=== PATIENT | female | born 1980 | race Two or more races ===

== ENCOUNTER 2017-05-04 17:52 | Emergency (ER) | payer OTHER ==
[2017-05-04] MEDS ORDERED: NORMAL SALINE 1000 ML 1,000 ML IV PRN (18:12)
--- NOTE | 2017-05-04 18:16 | ER Document Report ---
ED Medical Screen (RME) - General Chief Complaint: Fainting Stated Complaint: DIZZYNESS Time Seen by Provider: 05/04/17 17:58 Mode of Arrival: Ambulatory Information source: Patient TRAVEL OUTSIDE OF THE [place] IN LAST 30 DAYS: No - HPI Patient complains to provider of: Syncope 2 Onset: Just prior to arrival Onset/Duration: Sudden Notes: 05/04/17 18:13 Patient is a 36-year-old female presenting to the emergency room complaining of 2 syncopal episodes today, twice she woke up on the ground with her male mold stamper and repairer standing over her, reports feeling dizzy and lightheaded and seeing spots just prior to the episodes occurring, denies any chest pain or shortness of breath, she states she has been having daily vaginal bleeding since April 03 which is unusual for her, she reports that she has been eating ice frequently and has a metallic taste in her mouth as well, patient denies any knowledge of being , no history of anemia previously, she currently takes metformin for insulin resistance and a weekly injection of Bydureon - Related Data Allergies/Adverse Reactions: Penicillins Allergy (Verified 05/04/17 17:55) Past Medical History - Social History Chew tobacco use (# tins/day): No Frequency of alcohol use: None Drug Abuse: None Endocrine Medical History: Reports: Hx Diabetes Mellitus Type 1 Renal/ Medical History: Denies: Hx Peritoneal Dialysis Physical Exam - Vital signs Vitals: Temp Pulse Resp BP Pulse Ox 98.6 F 79 14 154/96 H 100 05/04/17 17:55 05/04/17 17:55 05/04/17 17:55 05/04/17 17:55 05/04/17 17:55 Course - Vital Signs Vital signs: Temp Pulse Resp BP Pulse Ox 98.6 F 79 14 154/96 H 100 05/04/17 17:55 05/04/17 17:55 05/04/17 17:55 05/04/17 17:55 05/04/17 17:55
[2017-05-04 19:10] LABS: ABSOLUTE BASOPHILS # (AUTO) 0.1 10^3/uL (0.0-0.2); ABSOLUTE EOSINOPHILS # (AUTO) 0.1 10^3/uL (0.0-0.6); ABSOLUTE LYMPHOCYTES (AUTO) 2.3 10^3/uL (0.5-4.7); ABSOLUTE MONOCYTES (AUTO) 0.4 10^3/uL (0.1-1.4); ABSOLUTE NEUT (AUTO) 8.4 10^3/uL (1.7-8.2); BASOPHILS % (AUTO) 0.5 % (0-2); EOSINOPHILS % (AUTO) 0.6 % (0-6); HEMATOCRIT 35.7 % (36.0-47.0); HEMOGLOBIN 10.9 g/dL (12.0-15.5); LYMPHOCYTES % (AUTO) 20.5 % (13-45); MEAN CORPUSCULAR HEMOGLOBIN 20.3 pg (27.0-33.4); MEAN CORPUSCULAR HGB CONC 30.7 g/dL (32.0-36.0); MEAN CORPUSCULAR VOLUME 66 fl (80-97); MONOCYTES % (AUTO) 3.6 % (3-13); RED CELL DISTRIBUTION WIDTH 19.5 % (11.5-14.0); SEGMENTED NEUTROPHILS % (AUTO) 74.8 % (42-78); WHITE BLOOD COUNT 11.3 10^3/uL (4.0-10.5)
[2017-05-04 19:28] LABS: ALANINE AMINOTRANSFERASE 35 U/L (9-52); ALBUMIN 4.4 g/dL (3.5-5.0); ALKALINE PHOSPHATASE 65 U/L (38-126); ANION GAP 11 (5-19); ASPARTATE AMINO TRANSFERASE 30 U/L (14-36); BILIRUBIN,DIRECT 0.4 mg/dL (0.0-0.4); BILIRUBIN,TOTAL 0.5 mg/dL (0.2-1.3); BLOOD UREA NITROGEN 18 mg/dL (7-20); CALCIUM 9.6 mg/dL (8.4-10.2); CARBON DIOXIDE 26 mmol/L (22-30); CHLORIDE 104 mmol/L (98-107); GLUCOSE 90 mg/dL (75-110); POTASSIUM 4.3 mmol/L (3.6-5.0); SODIUM 140.9 mmol/L (137-145); TOTAL PROTEIN 7.3 g/dL (6.3-8.2)
--- NOTE | 2017-05-04 19:28 | ER Document Report ---
ED General - General Chief Complaint: Fainting Stated Complaint: DIZZYNESS Time Seen by Provider: 05/04/17 17:58 Mode of Arrival: Ambulatory Notes: Dizziness and feels like fainting. Patient states that this is happened a couple of times a day. Denies any chest pain. History of insulin resistance. Taking metformin. Over the last year she has lost approximately 50 pounds in a weight loss program. Not taking any systemic medication at this time. No fever. No chills. No sweats. No other major issues at this time. TRAVEL OUTSIDE OF THE [place] IN LAST 30 DAYS: No - Related Data Allergies/Adverse Reactions: Penicillins Allergy (Verified 05/04/17 17:55) Past Medical History - General Information source: Patient - Social History Smoking Status: Never Smoker Chew tobacco use (# tins/day): No Frequency of alcohol use: None Drug Abuse: None Family History: Reviewed & Not Pertinent Endocrine Medical History: Reports: Hx Diabetes Mellitus Type 1 Renal/ Medical History: Denies: Hx Peritoneal Dialysis Review of Systems - Review of Systems Constitutional: No symptoms reported EENT: No symptoms reported Cardiovascular: No symptoms reported, Syncope, Dizziness, Lightheaded Respiratory: No symptoms reported Gastrointestinal: No symptoms reported Genitourinary: No symptoms reported Female Genitourinary: No symptoms reported Musculoskeletal: No symptoms reported Skin: No symptoms reported Hematologic/Lymphatic: No symptoms reported Neurological/Psychological: No symptoms reported Physical Exam - Vital signs Vitals: Temp Pulse Resp BP Pulse Ox 98.6 F 79 14 154/96 H 100 05/04/17 17:55 05/04/17 17:55 05/04/17 17:55 05/04/17 17:55 05/04/17 17:55 Interpretation: Normal - General General appearance: Appears well, Alert - HEENT Head: Normocephalic, Atraumatic Eyes: Normal Pupils: PERRL - Respiratory Respiratory status: No respiratory distress Chest status: Nontender Breath sounds: Normal Chest palpation: Normal - Cardiovascular Rhythm: Regular Heart sounds: Normal auscultation Murmur: No - Abdominal Inspection: Normal Distension: No distension Bowel sounds: Normal Tenderness: Nontender Organomegaly: No organomegaly - Back Back: Normal, Nontender - Extremities General upper extremity: Normal inspection, Nontender, Normal color, Normal ROM , Normal temperature General lower extremity: Normal inspection, Nontender, Normal color, Normal ROM , Normal temperature, Normal weight bearing. No: Sharon's sign - Neurological Neuro grossly intact: Yes Cognition: Normal Orientation: AAOx4 Sridhar Coma Scale Eye Opening: Spontaneous Ridge Coma Scale Verbal: Oriented Sridhar Coma Scale Motor: Obeys Commands Ridge Coma Scale Total: 15 Speech: Normal Motor strength normal: LUE, RUE, LLE, RLE Sensory: Normal - Psychological Associated symptoms: Normal affect, Normal mood - Skin Skin Temperature: Warm Skin Moisture: Dry Skin Color: Normal Course - Re-evaluation Re-evalutation: 05/04/17 20:37 Well-appearing. No acute distress. Labs unremarkable. EKG unremarkable. 05/04/17 20:37 Labs- All tests 24 hr 05/04/17 05/04/17 05/04/17 08:15 18:50 18:50 WBC 11.3 H RBC 5.40 H Hgb 10.9 L Hct 35.7 L MCV 66 L MCH 20.3 L MCHC 30.7 L RDW 19.5 H Plt Count 190 Seg Neutrophils % 74.8 Lymphocytes % 20.5 Monocytes % 3.6 Eosinophils % 0.6 Basophils % 0.5 Absolute Neutrophils 8.4 H Absolute Lymphocytes 2.3 Absolute Monocytes 0.4 Absolute Eosinophils 0.1 Absolute Basophils 0.1 Sodium 140.9 Potassium 4.3 Chloride 104 Carbon Dioxide 26 Anion Gap 11 BUN 18 Creatinine 1.10 Est GFR ( Amer) > 60 Est GFR (Non-Af Amer) 56 L Glucose 90 Calcium 9.6 Total Bilirubin 0.5 Direct Bilirubin 0.4 Indirect Bilirubin Not Reportable Neonat Total Bilirubin Not Reportable AST 30 ALT 35 Alkaline Phosphatase 65 Total Protein 7.3 Albumin 4.4 Serum HCG, Qual Urine Color Urine Appearance Urine pH Ur Specific Ehrenberg Urine Protein Urine Glucose (UA) Urine Ketones Urine Blood Urine Nitrite Urine Bilirubin Urine Urobilinogen Ur Leukocyte Esterase Urine WBC (Auto) Urine RBC (Auto) Squamous Epi Cells Auto Urine Mucus (Auto) Urine Ascorbic Acid Blood Type A POSITIVE Antibody Screen NEGATIVE 05/04/17 05/04/17 18:50 19:40 WBC RBC Hgb Hct MCV MCH MCHC RDW Plt Count Seg Neutrophils % Lymphocytes % Monocytes % Eosinophils % Basophils % Absolute Neutrophils Absolute Lymphocytes Absolute Monocytes Absolute Eosinophils Absolute Basophils Sodium Potassium Chloride Carbon Dioxide Anion Gap BUN Creatinine Est GFR ( Amer) Est GFR (Non-Af Amer) Glucose Calcium Total Bilirubin Direct Bilirubin Indirect Bilirubin Neonat Total Bilirubin AST ALT Alkaline Phosphatase Total Protein Albumin Serum HCG, Qual NEGATIVE Urine Color YELLOW Urine Appearance SLIGHTLY-CLOUDY Urine pH 5.0 Ur Specific Ehrenberg 1.028 Urine Protein 30 H Urine Glucose (UA) NEGATIVE Urine Ketones NEGATIVE Urine Blood LARGE H Urine Nitrite NEGATIVE Urine Bilirubin NEGATIVE Urine Urobilinogen NEGATIVE Ur Leukocyte Esterase TRACE H Urine WBC (Auto) 8 Urine RBC (Auto) 14 Squamous Epi Cells Auto 8 Urine Mucus (Auto) RARE Urine Ascorbic Acid NEGATIVE Blood Type Antibody Screen - Vital Signs Vital signs: Temp Pulse Resp BP Pulse Ox 98.6 F 79 14 154/96 H 100 05/04/17 17:55 05/04/17 17:55 05/04/17 17:55 05/04/17 17:55 05/04/17 17:55 - Laboratory Result Diagrams: 05/04/17 18:50 05/04/17 18:50 Laboratory results interpreted by me: 05/04/17 05/04/17 05/04/17 18:50 18:50 19:40 WBC 11.3 H RBC 5.40 H Hgb 10.9 L Hct 35.7 L MCV 66 L MCH 20.3 L MCHC 30.7 L RDW 19.5 H Absolute Neutrophils 8.4 H Est GFR (Non-Af Amer) 56 L Urine Protein 30 H Urine Blood LARGE H Ur Leukocyte Esterase TRACE H - EKG Interpretation by Ny EKG shows normal: Sinus rhythm, Bradley, Intervals, QRS Complexes, ST-T Waves Discharge - Discharge Clinical Impression: Near syncope Disposition: HOME, SELF-CARE Additional Instructions: Near Syncopal Episode Syncope or near syncope (fainting or near-fainting) can occur from many different health problems. Or it can be a simple fainting spell requiring no treatment. It is safe for you to go home, but further evaluation will likely be necessary. Your work-up may include tests for internal bleeding, heart disease, medication problems, or near-strokes. Tests are not always required, however, depending on the nature of your problem. The warning signs of an impending faint include: dizziness, lightheadedness , nausea, hot flashes, tingling, and weakness. If this happens, lay down and put your feet up, then wait until all of these symptoms have passed before standing up again. If these episodes become recurrent, or if you develop chest pain, heart palpitations, mental confusion, blurred vision, or headache, then you should call the physician, or go to the emergency room.
[2017-05-04 20:02] LABS: APPEARANCE,URINE SLIGHTLY-CLOUDY; BILIRUBIN,URINE NEGATIVE (NEGATIVE); GLUCOSE, URINE NEGATIVE (NEGATIVE); KETONES,URINE NEGATIVE (NEGATIVE); LEUKOCYTE ESTERASE,URINE TRACE (NEGATIVE); NITRITE,URINE NEGATIVE (NEGATIVE); PROTEIN,URINE 30 mg/dL (NEGATIVE); URINE SPECIFIC GRAVITY 1.028; UROBILINOGEN,URINE NEGATIVE mg/dL (<2.0)
[2017-05-04 20:55] VITALS: BP 106/88
--- NOTE | 2017-05-05 07:44 | EKG REPORT ---
SEVERITY:- NORMAL ECG - SINUS RHYTHM : Confirmed by: Sim Hunt MD 05-May-2017 07:44:22
== END 2017-05-04 20:55 | disposition home or self-care (01) ==
LOC: ER 17:52
DX: R55 Syncope and collapse (principal); E10.9 Type 1 diabetes mellitus without complications; Z79.84 Long term (current) use of oral hypoglycemic drugs
CPT/HCPCS: 93005; 99284; 96360; 86900; 86901; 36415; 86850; 84703; 85025; 80053; 81001; 93010; J7030

== ENCOUNTER → 2017-08-29 | Outpatient (CLI) | payer OTHER ==
--- NOTE | 2017-08-30 13:05 | RADIOLOGY REPORT (SQ) ---
EXAM DESCRIPTION: NM THYROID SCAN AND UPTAKE COMPLETED DATE/TIME: 08/30/2017 12:49 pm REASON FOR STUDY: E04.2 NONTOXIC MULTINODULAR GOITER E04.2 NONTOXIC MULTINODULAR GOITER COMPARISON: None. RADIONUCLIDE AND DOSE: 310 microcuries I-123. The route of agent administration: Oral and Intravenous ADDITIONAL DRUGS AND DOSES: None. TECHNIQUE: Iodine uptake was measured at 4 and 24 hours. Images of the neck were acquired. LIMITATIONS: None. FINDINGS: 4 HOUR UPTAKE RADIO-IODINE: 12.5%. Normal Range of 5-20% [facility] Normal Range of 5-15% [facility] Normal Range of 5-15% [facility] 24 HOUR UPTAKE RADIO-IODINE: 29.4%. Normal Range of 7-35% [facility] Normal Range of 8-35% [facility] Normal Range of 15-30% [facility] SCAN: Imaging of the thyroid demonstrates multiple areas of decreased uptake throughout an enlarged g land, worrisome for multinodular goiter. No hyperfunctioning nodule is identified on today's scan. IMPRESSION: 4 hour and 24 hour uptake is at the upper limits of normal Diffusely enlarged gland with heterogeneous activity worrisome for multinodular goiter TECHNICAL DOCUMENTATION: JOB ID: [id number] [employer]- All Rights Reserved
== END ==
LOC: RAD 09:22
PROVIDERS: ATTEND Physician Assistant
DX: E04.2 Nontoxic multinodular goiter (principal)
CPT/HCPCS: 36415; 84703; 78014; A9516

== ENCOUNTER 2018-09-29 07:53 | Day surgery (SDC) | payer OTHER ==
[~2018-09-29 07:53] MED LIST: DEXAMETHASONE SOD PHOSPHATE INJ 4 MG/1 ML VIAL ONE; FENTANYL CITRATE INJ/PF 100 MCG/2 ML AMPUL ONE; MIDAZOLAM 2 MG/2 ML INJ ONE; ONDANSETRON HCL INJ/PF 4 MG/2 ML SDV ONE; PROPOFOL INJ 200 MG/20 ML VIAL IV ONE
[2018-09-29 08:30] LABS: HEMOGLOBIN 11.5 g/dL (12.0-15.5); MEAN CORPUSCULAR HEMOGLOBIN 21.6 pg (27.0-33.4); MEAN CORPUSCULAR HGB CONC 31.9 g/dL (32.0-36.0); MEAN CORPUSCULAR VOLUME 68 fl (80-97); PLATELET COUNT 219 10^3/uL (150-450); RED BLOOD COUNT 5.31 10^6/uL (3.72-5.28); RED CELL DISTRIBUTION WIDTH 18.6 % (11.5-14.0); WHITE BLOOD COUNT 6.8 10^3/uL (4.0-10.5)
[2018-09-29] MEDS ORDERED: LIDOCAINE 1%/EPINEPHRINE INJ 20 ML VIAL ONE (10:08)
[2018-09-29] MEDS ORDERED: METHYLERGONOVINE MALEATE INJ/PF 0.2 MG/1 ML AMPULE ONE (10:08)
[2018-09-29] MEDS ORDERED: MEPERIDINE HCL/PF INJ 25 MG/1 ML DISP.SYRIN IV PRN (10:34)
[2018-09-29] MEDS ORDERED: FENTANYL CITRATE INJ/PF 100 MCG/2 ML AMPUL IV PRN ×3 (10:34)
[2018-09-29] MEDS ORDERED: MORPHINE SULFATE 10 MG/ML INJ IV PRN (10:34)
[2018-09-29] MEDS ORDERED: ONDANSETRON HCL INJ/PF 4 MG/2 ML SDV IV PRN ×2 (10:34→11:18)
[2018-09-29] MEDS ORDERED: DIPHENHYDRAMINE HCL 50 MG/ML VIAL IV PRN (10:34)
[2018-09-29] MEDS ORDERED: PROMETHAZINE HCL INJ 25 MG/1 ML VIAL IV PRN ×2 (10:34)
[2018-09-29] MEDS ORDERED: KETOROLAC TROMETHAMINE INJ/PF 30 MG/1 ML SDV ONE (10:57)
[2018-09-29] MEDS ORDERED: ACETAMINOPHEN 1,000 MG/100 ML RTUPB IV ONE (10:57)
[2018-09-29] MEDS ORDERED: HYDROMORPHONE HCL INJ/PF 2 MG/ML AMPULE IV PRN (11:14)
[2018-09-29] MEDS ORDERED: RINGERS SOLUTION,LACTATED 1,000 ML IV PRN (11:15)
[2018-09-29] MEDS ORDERED: IBUPROFEN 800 MG TABLET PO PRN (11:16)
[2018-09-29] MEDS ORDERED: OXYCODONE-ACETAMINOPHEN 5-325 MG TABLET PO PRN ×2 (11:17)
[2018-09-29] MEDS ORDERED: SUCCINYLCHOLINE CHLORIDE INJ 200 MG/10 ML VIAL ONE (11:35)
[2018-09-29 12:04] VITALS: BP 128/86
--- NOTE | 2018-09-30 07:00 | Operative Report ---
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 PROCEDURE: Anesthesia: Finn LUKE IVF: [800ml] UOP: void prior to OR] Indications: [37yo with insulin resistance and HTN and infertility with PCOS and DUB with menorrhagia. She has had a negative endometrial biopsy. [facility] instructed her to lose 30# then they would proceed with fertility treatments. She has failed medical treatments for Menorrhagia and DUB and is here for D&C to help cause bleeding cessation. The risks, benefits, and alternatives were reviewed and she desires to proceed with planned procedure.] Procedure: The patient was taken to the Operating Room where general anesthesia was obtained without difficulty. She was prepped and draped in the normal sterile fashion in the dorsal lithotomy position. Exam under anesthesia was performed and noted above. A speculum was placed in the vagina. The anterior cervix was grasped with a single-tooth tenaculum and the uterus sounded to 8 cm after paracervical block was performed with 8 mL of 1% lidocaine with epinephrine. Sequential dilators were then used to dilate the cervix to accommodate the Myosure hysteroscope. The hysteroscope was then gently advanced into the uterine cavity in the usual fashion with visualization of the endometrial cavity. The cavity appears somewhat assymetric with indention in the central area which could represent arcuate uterus or septum. Will defer treatment of this to her fertility specialists after further evaluation with [facility] if that is appropriate. At this time gentle curettage was performed until a gritty texture was noted. All instruments were removed from the patient's cervix and vagina. Silver nitrate was applied to the tenaculum site for hemostasis. Sponge lap needle and instrument counts are correct 2. No perioperative antibiotics were given as is not indicated for this procedure. The patient tolerated the procedure well and was taken to the recovery area awake and in stable condition.
== END 2018-09-29 12:06 | disposition home or self-care (01) ==
LOC: OROUT 07:53
PROVIDERS: ATTEND Student in an Organized Health Care Education/Training Program
DX: N92.0 Excessive and frequent menstruation with regular cycle (principal); N93.8 Other specified abnormal uterine and vaginal bleeding; N97.9 Female infertility, unspecified; Z01.818 Encounter for other preprocedural examination; E66.01 Morbid (severe) obesity due to excess calories; E88.81 Metabolic syndrome and other insulin resistance; Z79.84 Long term (current) use of oral hypoglycemic drugs; Z79.3 Long term (current) use of hormonal contraceptives; Z88.0 Allergy status to penicillin; Z68.42 Body mass index [BMI] 45.0-49.9, adult; D64.9 Anemia, unspecified
CPT/HCPCS: 36415; 82962; 84703; 85027; 88305 ×2; 58558; J2250; J1100; J3010; J3490; J1885; J0330; J2405; J2704; J0131; 952; J2210

== ENCOUNTER 2018-10-04 12:27 | Emergency (ER) | payer OTHER ==
[2018-10-04 13:16] LABS: APPEARANCE,URINE CLOUDY; BILIRUBIN,URINE NEGATIVE (NEGATIVE); COLOR,URINE RED; GLUCOSE, URINE NEGATIVE (NEGATIVE); KETONES,URINE NEGATIVE (NEGATIVE); LEUKOCYTE ESTERASE,URINE NEGATIVE (NEGATIVE); NITRITE,URINE NEGATIVE (NEGATIVE); PROTEIN,URINE 100 mg/dL (NEGATIVE); URINE SPECIFIC GRAVITY 1.027; UROBILINOGEN,URINE NEGATIVE mg/dL (<2.0)
[2018-10-04 14:09] LABS: ABSOLUTE EOSINOPHILS # (AUTO) 0.1 10^3/uL (0.0-0.6); ABSOLUTE LYMPHOCYTES (AUTO) 1.7 10^3/uL (0.5-4.7); ABSOLUTE MONOCYTES (AUTO) 0.5 10^3/uL (0.1-1.4); ABSOLUTE NEUT (AUTO) 8.1 10^3/uL (1.7-8.2); BASOPHILS % (AUTO) 0.4 % (0-2); HEMATOCRIT 36.3 % (36.0-47.0); HEMOGLOBIN 11.5 g/dL (12.0-15.5); LYMPHOCYTES % (AUTO) 16.3 % (13-45); MEAN CORPUSCULAR HEMOGLOBIN 21.7 pg (27.0-33.4); MEAN CORPUSCULAR HGB CONC 31.7 g/dL (32.0-36.0); MEAN CORPUSCULAR VOLUME 69 fl (80-97); MONOCYTES % (AUTO) 4.4 % (3-13); PLATELET COUNT 212 10^3/uL (150-450); RED CELL DISTRIBUTION WIDTH 18.1 % (11.5-14.0); SEGMENTED NEUTROPHILS % (AUTO) 77.9 % (42-78); TOTAL CELLS COUNTED % (AUTO) 100 %; WHITE BLOOD COUNT 10.5 10^3/uL (4.0-10.5)
[2018-10-04 14:10] LABS: INTERNATIONAL RATION (INR) 0.87; PROTHROMBIN TIME 12.3 SEC (11.4-15.4)
[2018-10-04 14:21] LABS: ALANINE AMINOTRANSFERASE 16 U/L (9-52); ALBUMIN 4.7 g/dL (3.5-5.0); ALKALINE PHOSPHATASE 62 U/L (38-126); ANION GAP 12 (5-19); ASPARTATE AMINO TRANSFERASE 25 U/L (14-36); BILIRUBIN,DIRECT 0.2 mg/dL (0.0-0.4); BILIRUBIN,TOTAL 0.6 mg/dL (0.2-1.3); BLOOD UREA NITROGEN 15 mg/dL (7-20); CALCIUM 9.8 mg/dL (8.4-10.2); CARBON DIOXIDE 22 mmol/L (22-30); CHLORIDE 105 mmol/L (98-107); GLUCOSE 97 mg/dL (75-110); POTASSIUM 4.5 mmol/L (3.6-5.0); SODIUM 138.5 mmol/L (137-145); TOTAL PROTEIN 7.6 g/dL (6.3-8.2)
[2018-10-04] MEDS ORDERED: NORMAL SALINE 1000 ML 1,000 ML IV ONE (14:47)
[2018-10-04] MEDS ORDERED: MORPHINE SULFATE 10 MG/ML INJ IV ONE (14:47)
[2018-10-04] MEDS ORDERED: ONDANSETRON HCL INJ/PF 4 MG/2 ML SDV IV ONE (14:47)
--- NOTE | 2018-10-04 14:49 | ER Document Report ---
ED GI/ - General Chief Complaint: Pelvic Pain Stated Complaint: PELVIC PAIN Time Seen by Provider: 10/04/18 14:36 Primary Care Provider: MARIA M WATTS MD [Primary Care Provider] - Follow up as needed Mode of Arrival: Ambulatory Information source: Patient Notes: Patient is a 37-year-old female who presents with complaints of low abdominal cramping and moderate vaginal bleeding since yesterday. Patient describes the bleeding is a bright red blood. Patient states that 5 days ago she had a D&C done here by Dr. Watts, states that she has been having worsening pelvic pain and cramping since then. Reports mild nausea but no vomiting or diarrhea. No fevers. TRAVEL OUTSIDE OF THE [place] IN LAST 30 DAYS: No - Related Data Allergies/Adverse Reactions: Penicillins Allergy (Severe, Verified 09/26/18 12:04) rash Past Medical History - General Information source: Patient - Social History Smoking Status: Never Smoker Frequency of alcohol use: None Drug Abuse: None Family History: Reviewed & Not Pertinent Patient has suicidal ideation: No Patient has homicidal ideation: No - Past Medical History Cardiac Medical History: Denies: Hx Coronary Artery Disease, Hx Heart Attack, Hx Hypertension Pulmonary Medical History: Denies: Hx Asthma, Hx Bronchitis, Hx COPD, Hx Pneumonia Neurological Medical History: Denies: Hx Cerebrovascular Accident, Hx Seizures Endocrine Medical History: Reports: Hx Diabetes Mellitus Type 1 Renal/ Medical History: Denies: Hx Peritoneal Dialysis Musculoskeletal Medical History: Denies Hx Arthritis - Immunizations Hx Diphtheria, Pertussis, Tetanus Vaccination: Yes Review of Systems - Review of Systems Constitutional: No symptoms reported EENT: No symptoms reported Cardiovascular: No symptoms reported Respiratory: No symptoms reported Gastrointestinal: No symptoms reported Genitourinary: No symptoms reported Female Genitourinary: Vaginal bleeding, Other - PELVIC PAIN Musculoskeletal: No symptoms reported Skin: No symptoms reported Hematologic/Lymphatic: No symptoms reported Neurological/Psychological: No symptoms reported Physical Exam - Vital signs Vitals: Temp Pulse Resp BP Pulse Ox 98.5 F 73 18 151/99 H 99 10/04/18 12:57 10/04/18 12:57 10/04/18 12:57 10/04/18 12:57 10/04/18 12:57 - Notes Notes: PHYSICAL EXAMINATION: GENERAL: Well-appearing, well-nourished and in no acute distress. HEAD: Atraumatic, normocephalic. EYES: Pupils equal round and reactive to light, extraocular movements intact, conjunctiva are normal. ENT: Nares patent, oropharynx clear without exudates. Moist mucous membranes. NECK: Normal range of motion, supple without lymphadenopathy LUNGS: Breath sounds clear to auscultation bilaterally and equal. No wheezes rales or rhonchi. HEART: Regular rate and rhythm without murmurs ABDOMEN: Soft, nontender, nondistended abdomen. No guarding, no rebound. No masses appreciated. Female : Vaginal speculum exam reveals moderate amount of dark red blood coming from the cervical os no cervical motion tenderness or adnexal tenderness appreciated.. Musculoskeletal: Normal range of motion, no pitting or edema. No cyanosis. NEUROLOGICAL: Cranial nerves grossly intact. Normal speech, normal gait. Normal sensory, motor exams PSYCH: Normal mood, normal affect. SKIN: Warm, Dry, normal turgor, no rashes or lesions noted. Course - Re-evaluation Re-evalutation: 10/04/18 15:03 Labs as recorded. CBC reveals a normal hemoglobin and hematocrit but low plat elets. Patient does have a history of chronic anemia. Speculum exam reveals mild to moderate vaginal bleeding. Called and spoke with AUTOMOTIVE STARTER REPAIRER on-call, Dr. Magda Morales. We discussed patient's case including her pathology reports. We discussed the patient has at this time mild to moderate to continuous bleeding. Her recommendation is to place patient on oral TXA, 1300 mg 3 times daily for 5 days and discharge patient to follow-up in their office. - Vital Signs Vital signs: Temp Pulse Resp BP Pulse Ox 98.9 F 70 20 129/73 H 98 10/04/18 16:24 10/04/18 16:24 10/04/18 16:24 10/04/18 16:24 10/04/18 16:24 - Laboratory Result Diagrams: 10/04/18 13:40 10/04/18 13:40 Laboratory results interpreted by me: 10/04/18 10/04/18 13:04 13:40 RBC 5.30 H Hgb 11.5 L MCV 69 L MCH 21.7 L MCHC 31.7 L RDW 18.1 H Urine Protein 100 H Urine Blood LARGE H Urine Ascorbic Acid 40 H Discharge - Discharge Clinical Impression: Pelvic pain, Vaginal bleeding Condition: Stable Disposition: HOME, SELF-CARE Additional Instructions: I spoke with the on-call physician for [facility], Dr. Morales. She recommended placing you on a medication called TXA. This will help stop the bleeding. Please call [facility] Saturday to schedule a follow-up appointment. Return to the emergency department if you develop worsening of your bleeding, you are bleeding through more than 1 pad per hour for 4 hours consecutively, you develop a fever or worsening abdominal pain. Prescriptions: Oxycodone HCl/Acetaminophen [Percocet 5-325 mg Tablet] 1 tab PO Q4H PRN #12 tablet PRN Reason: Tranexamic Acid 1,300 mg PO TID 5 Days #30 tablet Forms: Return to Work Referrals: MARIA M WATTS MD [Primary Care Provider] - Follow up as needed
[2018-10-04 16:29] VITALS: BP 129/73
== END 2018-10-04 17:08 | disposition home or self-care (01) ==
LOC: ER 12:27
DX: R10.2 Pelvic and perineal pain (principal); N89.8 Other specified noninflammatory disorders of vagina; D69.6 Thrombocytopenia, unspecified; R11.0 Nausea; E10.9 Type 1 diabetes mellitus without complications; Z98.890 Other specified postprocedural states
CPT/HCPCS: 99284; 96361; 96374; 96375; 36415; 85025; 85610; 85730; 81025; 80053; 81001; J2270; J2405; J7030

== ENCOUNTER 2019-06-19 10:41 | Emergency (ER) | payer OTHER ==
--- NOTE | 2019-06-19 10:54 | ER Document Report ---
ED Medical Screen (RME) - General Chief Complaint: Dizziness Stated Complaint: DIZZY,SYNCOPAL EPISODE Time Seen by Provider: 06/19/19 10:48 Primary Care Provider: MARIA M WATTS MD [Primary Care Provider] - Follow up as needed Mode of Arrival: Ambulatory Information source: Patient Notes: 38-year-old female presented to ED for vaginal bleeding for about a month dizz iness. She states she has been to the doctor recently and she knows that her hemoglobin is 7.8 when it was checked a couple days ago. She states that the doctor told her to wait till Saturday but she has fallen several times since then and she is getting more dizzy and more lightheaded so she came to the emergency room to be reevaluated. She states she is been having vaginal bleeding spotting for about a month they put on control pills for about 2 weeks but they did not do anything and she recently had a gastric bypass so she was not absorbing on. She states the heavy bleeding has been for about 2 weeks. Is alert and oriented at this time. I have ordered blood work urine and transvaginal ultrasound and she will be seen by another provider. She states that her found her upstairs with her left breast and passed out yesterday I have greeted and performed a rapid initial assessment of this patient. A comprehensive ED assessment and evaluation of the patient, analysis of test results and completion of medical decision making process will be conducted by an additional ED providers. TRAVEL OUTSIDE OF THE [place] IN LAST 30 DAYS: No - Related Data Allergies/Adverse Reactions: Penicillins Allergy (Severe, Verified 06/19/19 10:48) rash Past Medical History - Past Medical History Cardiac Medical History: Denies: Hx Coronary Artery Disease, Hx Heart Attack, Hx Hypertension Pulmonary Medical History: Denies: Hx Asthma, Hx Bronchitis, Hx COPD, Hx Pneumonia Neurological Medical History: Denies: Hx Cerebrovascular Accident, Hx Seizures Endocrine Medical History: Reports: Hx Diabetes Mellitus Type 1 Renal/ Medical History: Denies: Hx Peritoneal Dialysis Musculoskeltal Medical History: Denies Hx Arthritis - Immunizations Hx Diphtheria, Pertussis, Tetanus Vaccination: Yes Physical Exam - Vital signs Vitals: Temp Pulse Resp BP Pulse Ox 98.2 F 85 12 130/61 H 100 06/19/19 10:47 06/19/19 10:47 06/19/19 10:47 06/19/19 10:47 06/19/19 10:47 Course - Vital Signs Vital signs: Temp Pulse Resp BP Pulse Ox 98.2 F 85 12 130/61 H 100 06/19/19 10:47 06/19/19 10:47 06/19/19 10:47 06/19/19 10:47 06/19/19 10:47 Doctor's Discharge - Discharge Referrals: MARIA M WATTS MD [Primary Care Provider] - Follow up as needed
[2019-06-19 11:18] LABS: ABSOLUTE LYMPHOCYTES (AUTO) 2.5 10^3/uL (0.5-4.7); ABSOLUTE MONOCYTES (AUTO) 0.4 10^3/uL (0.1-1.4); ABSOLUTE NEUT (AUTO) 4.7 10^3/uL (1.7-8.2); BASOPHILS % (AUTO) 0.4 % (0-2); EOSINOPHILS % (AUTO) 0.1 % (0-6); HEMATOCRIT 19.7 % (36.0-47.0); LYMPHOCYTES % (AUTO) 32.1 % (13-45); MEAN CORPUSCULAR HEMOGLOBIN 25.3 pg (27.0-33.4); MEAN CORPUSCULAR HGB CONC 32.1 g/dL (32.0-36.0); MEAN CORPUSCULAR VOLUME 79 fl (80-97); MONOCYTES % (AUTO) 5.5 % (3-13); PLATELET COUNT 268 10^3/uL (150-450); RED CELL DISTRIBUTION WIDTH 15.8 % (11.5-14.0); SEGMENTED NEUTROPHILS % (AUTO) 61.9 % (42-78); TOTAL CELLS COUNTED % (AUTO) 100 %; WHITE BLOOD COUNT 7.7 10^3/uL (4.0-10.5)
[2019-06-19 11:20] LABS: HEMOGLOBIN 6.3 g/dL (12.0-15.5)
[2019-06-19 11:25] LABS: INTERNATIONAL RATION (INR) 1.09; PROTHROMBIN TIME 14.1 SEC (11.4-15.4)
[2019-06-19 11:26] LABS: PARTIAL THROMBOPLASTIN TIME 25.2 SEC (23.5-35.8)
[2019-06-19 11:37] LABS: ALBUMIN 4.1 g/dL (3.5-5.0); ALKALINE PHOSPHATASE 71 U/L (38-126); ANION GAP 8 (5-19); ASPARTATE AMINO TRANSFERASE 19 U/L (14-36); BILIRUBIN,DIRECT 0.1 mg/dL (0.0-0.4); BILIRUBIN,TOTAL 0.4 mg/dL (0.2-1.3); BLOOD UREA NITROGEN 13 mg/dL (7-20); CALCIUM 9.2 mg/dL (8.4-10.2); CARBON DIOXIDE 27 mmol/L (22-30); CHLORIDE 101 mmol/L (98-107); GLUCOSE 94 mg/dL (75-110); POTASSIUM 3.8 mmol/L (3.6-5.0); TOTAL PROTEIN 6.7 g/dL (6.3-8.2)
[2019-06-19] MEDS ORDERED: NORMAL SALINE 250 ML IV PRN (11:40)
[2019-06-19] MEDS ORDERED: MEDROXYPROGESTERONE ACET 10 MG TABLET PO ONE (11:41)
[2019-06-19 11:51] LABS: APPEARANCE,URINE SLIGHTLY-CLOUDY; BILIRUBIN,URINE NEGATIVE (NEGATIVE); GLUCOSE, URINE NEGATIVE (NEGATIVE); KETONES,URINE TRACE mg/dL (NEGATIVE); PROTEIN,URINE 100 mg/dL (NEGATIVE); URINE SPECIFIC GRAVITY 1.027
[2019-06-19 11:52] LABS: COLOR,URINE YELLOW
--- NOTE | 2019-06-19 11:58 | EKG REPORT ---
SEVERITY:- BORDERLINE ECG - SINUS RHYTHM LOW VOLTAGE THROUGHOUT : Confirmed by: Yola Ochoa 19-Jun-2019 11:58:15
--- NOTE | 2019-06-19 12:00 | ER Document Report ---
Entered by MICHAELLE RUIZ SCRIBE 06/19/19 1137 Acting as scribe for:PEDRO WHITAKER MD ED General - General Chief Complaint: Dizziness Stated Complaint: DIZZY,SYNCOPAL EPISODE Time Seen by Provider: 06/19/19 10:48 Primary Care Provider: [facility] [Provider Group] - 06/22/19 (Call Saturday morning for an appointment this week.) Mode of Arrival: Ambulatory Information source: Patient Notes: Patient is a 38-year-old female that presents to the emergency department today with complaints of heavy vaginal bleeding for the last month. Patient has had similar vaginal bleeding in the past and had a D&C performed in September for pos sible relief of this vaginal bleeding. Patient also had a gastric bypass performed in February 2019 hoping that if she lost weight her "hormones would balance out" and her vaginal bleeding would stop. Patient states that after the gastric bypass surgery she had 2 months of normal periods but for the last month she has been bleeding heavily and passing golf ball sized clots. Patient had multiple syncopal episodes yesterday and feels dizzy and lightheaded when standing. Patient complains of some nausea as well. Patient has not been seen by OB for this episode of vaginal bleeding. Patient was set to have iron infusions done next week at Dr. Greenfield's office. TRAVEL OUTSIDE OF THE [place] IN LAST 30 DAYS: No - Related Data Allergies/Adverse Reactions: Penicillins Allergy (Severe, Verified 06/19/19 10:48) rash Past Medical History - General Information source: Patient - Social History Smoking Status: Never Smoker Cigarette use (# per day): No Chew tobacco use (# tins/day): No Frequency of alcohol use: None Drug Abuse: None Lives with: Family Family History: Reviewed & Not Pertinent Patient has suicidal ideation: No Patient has homicidal ideation: No Endocrine Medical History: Reports: Hx Diabetes Mellitus Type 2 Past Surgical History: Reports: Hx Dilation and Curettage - Immunizations Hx Diphtheria, Pertussis, Tetanus Vaccination: Yes Review of Systems - Review of Systems Constitutional: No symptoms reported EENT: No symptoms reported Cardiovascular: See HPI, Syncope Respiratory: No symptoms reported Gastrointestinal: No symptoms reported Genitourinary: No symptoms reported Female Genitourinary: See HPI, Vaginal bleeding Musculoskeletal: No symptoms reported Skin: No symptoms reported Hematologic/Lymphatic: No symptoms reported Neurological/Psychological: No symptoms reported -: Yes All other systems reviewed and negative Physical Exam - Vital signs Vitals: Temp Pulse Resp BP Pulse Ox 98.2 F 85 12 130/61 H 100 06/19/19 10:47 06/19/19 10:47 06/19/19 10:47 06/19/19 10:47 06/19/19 10:47 - Notes Notes: Physical Exam: General: Alert, appears well. HEENT: Normocephalic. Atraumatic. PERRL. Extraocular movements intact. Orophar ynx clear. Pale conjunctiva bilaterally. Neck: Supple. Non-tender. Respiratory: No respiratory distress. Clear and equal breath sounds bilaterally. Cardiovascular: Regular rate and rhythm. Abdominal: Normal Inspection. Non-tender. No distension. Normal Bowel Sounds. Back: No gross abnormalities. Extremities: Moves all four extremities. Upper extremities: Normal inspection. Normal ROM. Lower extremities: Normal inspection. No edema. Normal ROM. Neurological: Normal cognition. AAOx4. Normal speech. Psychological: Normal affect. Normal Mood. Skin: Pale in color. Pale nailbeds. Course - Vital Signs Vital signs: Temp Pulse Resp BP Pulse Ox 98.2 F 65 18 99/53 L 100 06/19/19 15:14 06/19/19 14:50 06/19/19 14:50 06/19/19 14:01 06/19/19 14:50 - Laboratory Result Diagrams: 06/19/19 11:06 06/19/19 11:06 Laboratory results interpreted by me: 06/19/19 06/19/19 06/19/19 11:06 11:06 11:06 RBC 2.50 L Hgb 6.3 L Hct 19.7 L MCV 79 L MCH 25.3 L RDW 15.8 H Sodium 136.4 L Urine Protein Urine Ketones Urine Blood Urine Urobilinogen Urine Ascorbic Acid Crossmatch See Detail 06/19/19 11:20 RBC Hgb Hct MCV MCH RDW Sodium Urine Protein 100 H Urine Ketones TRACE H Urine Blood LARGE H Urine Urobilinogen 2.0 H Urine Ascorbic Acid 40 H Crossmatch - Transfer of Care Care transferred to following provider: Dr. Mishra Notes: 06/19/19 16:02 Patient is receiving her second unit of packed RBCs at this time. She will be ready for discharge when that blood has gone in. Discharge - Discharge Clinical Impression: Anemia Qualifiers: Anemia type: iron deficiency Iron deficiency anemia type: chronic blood loss Qualified Code(s): D50.0 - Iron deficiency anemia secondary to blood loss (chronic) Menorrhagia Qualifiers: Menorrahagia type: with regular cycle Qualified Code(s): N92.0 - Excessive and frequent menstruation with regular cycle Condition: Stable Disposition: HOME, SELF-CARE Additional Instructions: Menorrhagia You are having severe bleeding from the uterus. We call this menorrhagia. It is most often caused by a hormone imbalance. The lining of the uterus grows too thick, then comes sloughs off with severe bleeding. There's often cramping and passage of clots. Sometimes menorrhagia is caused by benign muscle tumors in the uterus, called fibroids. There's no evidence of miscarriage or tubal . Menorrhagia often has no clear cause. But it's especially common at times when the normal menstrual cycle is disturbed -- whether by recent , use of hormones, or impending menopause. Some medical problems, such as obesity, stress, or thyroid problems make menorrhagia more likely. In many cases, the menstrual cycle will return to normal without treatment. Antiinflammatory pain medicine, like ibuprofen, can decrease cramping. Where the bleeding is significant, high-dose estrogen will usually stop the bleeding within a day of two. A cycle or two of hormones ( control pills) can help restore the uterus to normal. In some patients where bleeding is severe or resistant to treatment, a D&C is required. A endometrial biopsy (a sample of the inside of the uterus) may be recommended for some older women. This would be done by a gynecology specialist. Treatment for anemia may be required if bleeding is severe. You should rest and avoid intercourse until the bleeding is controlled. Call the doctor or return for re-examination if you feel faint, have increasing pain, or have a major increase in the amount of bleeding. Anemia You have been found to have a significant anemia (a lower than normal amount of red blood cells). Anemia can be due to iron deficiency, vitamin deficiency, abnormal bleeding, or internal diseases. Usually, further tests are necessary to find the exact cause of the anemia. The most common cause of anemia is iron deficiency, often brought on by blood loss. This can be treated with iron supplements. If this appears to be the most likely cause, iron tablets may be prescribed even before all tests are complete. Contact the doctor at once if you note black or tarry-looking stools, bloody vomiting, shortness of breath, chest pain, or faintness. Start taking the Provera tomorrow. Call [facility] Saturday to schedule an appointment this week. RETURN TO THE EMERGENCY ROOM IF ANY NEW OR WORSENING SYMPTOMS. Prescriptions: Medroxyprogesterone Acet [Provera 10 Mg Tablet] 10 mg PO DAILY #7 tablet Referrals: [facility] [Provider Group] - 06/22/19 (Call Saturday for an appointment this week.) Scribe Attestation: 06/19/19 12:43 I personally performed the services described in the documentation, reviewed and edited the documentation which was dictated to the scribe in my presence, and it accurately records my words and actions. I personally performed the services described in the documentation, reviewed and edited the documentation which was dictated to the scribe in my presence, and it accurately records my words and actions.
[2019-06-19 17:08] VITALS: BP 97/74
== END 2019-06-19 17:08 | disposition home or self-care (01) ==
LOC: ER 10:41
DX: D50.0 Iron deficiency anemia secondary to blood loss (chronic) (principal); N92.0 Excessive and frequent menstruation with regular cycle; Z98.84 Bariatric surgery status; R55 Syncope and collapse; R42 Dizziness and giddiness; R11.0 Nausea; E11.9 Type 2 diabetes mellitus without complications; Z88.0 Allergy status to penicillin
CPT/HCPCS: 93005; 86900; 86901; 36415; 36430; 86850; 84703; 85025; 85610; 85730; 80053; 81001; 86920; 93010; P9016; J3490; 99284